=== PATIENT | male | born 1980 | race Caucasian/White ===

== ENCOUNTER 2016-09-25 09:13 | Emergency (ER) | payer OTHER ==
[2016-09-25 09:22] VITALS: BP 148/90
--- NOTE | 2016-09-25 09:48 | EDM.PDOC ---
ED HPI GENERAL MEDICAL PROBLEM - General Chief Complaint: ENT Problem Stated Complaint: RIGHT SIDE OF FACE SWOLLEN Time Seen by Provider: 09/25/16 09:29 Source of Information: Reports: Patient History Limitations: Reports: No Limitations - History of Present Illness INITIAL COMMENTS - FREE TEXT/NARRATIVE: The patient woke up with right lower jaw edema and pain. He noticed some discomfort last night and then he woke up with the edema. He has no fever or chills. He has not been to a dentist in awhile. Onset: Gradual Duration: Hour(s): (He woke up with the swelling this morning) Location: Reports: Face (right lower jaw) Quality: Reports: Ache Severity: Moderate Improves with: Reports: None Worsens with: Reports: None Associated Symptoms: Reports: No Other Symptoms Right Lower Gums Pain Score (Numeric/FACES): 5 - Related Data Allergies Allergy/AdvReac Type Severity Reaction Status Date / Time bacitracin Allergy Rash Verified 09/25/16 09:22 [From Triple Antibiotic] neomycin Allergy Rash Verified 09/25/16 09:22 [From Triple Antibiotic] polymyxin B Allergy Rash Verified 09/25/16 09:22 [From Triple Antibiotic] Home Meds: Home Meds Lisinopril 20 mg PO DAILY 09/25/16 [History] Penicillin V Potassium 500 mg PO Q6HR #40 tab 09/25/16 [Rx] metFORMIN HCl [Metformin HCl] 1,000 mg PO BID 09/25/16 [History] oxyCODONE HCl/Acetaminophen [Percocet 5-325 mg Tablet] 1 - 2 each PO Q6HR PRN # 20 tablet 09/25/16 [Rx] Past Medical History Cardiovascular History: Reports: Hypertension Endocrine/Metabolic History: Reports: Diabetes, Type II Social & Family History - Tobacco Use Smoking Status *Q: Never Smoker - Recreational Drug Use Recreational Drug Use: No ED ROS ENT - Review of Systems Review Of Systems: See Below Constitutional: Reports: No Symptoms HEENT: Reports: Other (Right lower jaw edema and pain) Respiratory: Reports: No Symptoms Cardiovascular: Reports: No Symptoms Endocrine: Reports: No Symptoms GI/Abdominal: Reports: No Symptoms : Reports: No Symptoms Musculoskeletal: Reports: No Symptoms ED EXAM, ENT - Physical Exam Exam: See Below Exam Limited By: No Limitations General Appearance: Alert, No Apparent Distress Ears: Normal External Exam Nose: Normal Inspection Mouth/Throat: Other (Right lower jaw edema with pain upon palpation. There is poor dental hygeine to the teeth on that side.) Neck: Normal Inspection Respiratory/Chest: No Respiratory Distress Cardiovascular: Normal Peripheral Pulses Course - Vital Signs Last Recorded V/S: Last Vital Signs Temp 97.5 F 09/25/16 09:19 Pulse 115 H 09/25/16 09:19 Resp 16 09/25/16 09:19 BP 148/90 H 09/25/16 09:19 Pulse Ox 95 09/25/16 09:19 Departure - Departure Time of Disposition: 09:55 Disposition: Home, Self-Care 01 Condition: Good Clinical Impression: Dental abscess, Dental caries - Discharge Information Prescriptions: Penicillin V Potassium 500 mg PO Q6HR #40 tab oxyCODONE HCl/Acetaminophen [Percocet 5-325 mg Tablet] 1 - 2 each PO Q6HR PRN # 20 tablet PRN Reason: Pain Referrals: Janett Shea NP [Primary Care Provider] - Forms: ED Department Discharge Additional Instructions: Take the penicillin and percocet as prescribed. Put warm compresses on your face a few times per day. Follow up with a dentist. Please return if you are worse such as more pain, fever, chills or swelling.
== END 2016-09-25 10:10 | disposition home or self-care (01) ==
LOC: JD.ED 09:13
DX: K04.7 Periapical abscess without sinus (principal); K02.9 Dental caries, unspecified; I10 Essential (primary) hypertension; E11.9 Type 2 diabetes mellitus without complications; Z88.1 Allergy status to other antibiotic agents; Z79.899 Other long term (current) drug therapy; Z79.84 Long term (current) use of oral hypoglycemic drugs
CPT/HCPCS: 99283